=== PATIENT | male | born 1930 | race Caucasian/White ===

== ENCOUNTER 2022-03-03 07:49 | Day surgery (SDC) | payer MEDICARE, BC ==
[2022-03-03] VITALS (12 sets, daily range): BP systolic 112–155; BP diastolic 64–102
[~2022-03-03] VITALS: Ht 182.9 cm; Wt 78.0 kg
[~2022-03-03 07:49] MED LIST: AMIO200T61 PO; APIX2.5T PO; DILT180T9 PO; FURO20TA4 PO; POTA99TA25; TAMS0.4C32 PO
[2022-03-03] MEDS ORDERED: normal saline 1000ml 1,000 ML IV SCH (08:20)
[2022-03-03] MEDS ORDERED: fentaNYL/PF 50MCG/1 ML 2ML syringe IV ONE (08:20)
[2022-03-03] MEDS ORDERED: MIDAZolam 1mg/ml 10ml vial IV ONE (08:20)
[2022-03-03] MEDS ORDERED: glycopyrrolate 0.2mg/ml inj IV PRN (08:20)
[2022-03-03] MEDS ORDERED: amiodarone 150mg/dext, iso-os 100 ML IV ONE (08:20)
[2022-03-03] MEDS ORDERED: NITR0.4T48 (09:00)
[2022-03-03] MEDS ORDERED: BENICAR HCT PO (09:03)
[2022-03-03] MEDS ORDERED: SENNA PO (09:03)
[2022-03-03 09:47] LABS: BASOPHILS % (AUTO) 0.7 % (0-1); EOSINOPHILS # (AUTO) 0.2 X10'3 (0-0.9); EOSINOPHILS % (AUTO) 4.2 % (0-6); HEMATOCRIT 41.3 % (42.0-52.0); HEMOGLOBIN 13.9 g/dl (14.0-17.9); LYMPHOCYTES # (AUTO) 1.4 X10'3 (1.1-4.8); LYMPHOCYTES % (AUTO) 26.4 % (21-51); MEAN CORPUSCULAR HEMOGLOBIN 31.9 PG (27.0-31.0); MEAN CORPUSCULAR HGB CONC 33.7 g/dL (33.0-36.5); MEAN CORPUSCULAR VOLUME 94.5 FL (78-98); MEAN PLATELET VOLUME 8.4 FL (7.4-10.4); MONOCYTES # (AUTO) 0.6 X10'3 (0-0.9); MONOCYTES % (AUTO) 10.7 % (2-12); NEUTROPHILS # (AUTO) 3.1 X10'3 (1.8-7.7); PLATELET COUNT 178 X10'3 (140-440); RED BLOOD COUNT 4.37 X10'6 (4.70-6.10); RED CELL DISTRIBUTION WIDTH 13.4 % (11.5-14.5); WHITE BLOOD COUNT 5.3 X10'3 (4.5-11.0)
[2022-03-03] MEDS ORDERED: nitroGLYCERIN 0.4mg SUBLingual tab SL PRN (10:30)
[2022-03-03 10:31] LABS: ALBUMIN 3.7 G/DL (3.4-5.0); ANION GAP 10 (8-16); BLOOD UREA NITROGEN 31 MG/DL (7-18); BUN/CREATININE RATIO 13.5 (5.4-32.0); CHLORIDE 104 MMOL/L (99-107); CREATININE 2.29 MG/DL (0.60-1.10); GLUCOSE 96 MG/DL (70-104); MAGNESIUM 2.1 MG/DL (1.5-2.4); POTASSIUM 3.8 MMOL/L (3.5-5.1); SODIUM 141 MMOL/L (135-145); TOTAL CARBON DIOXIDE 26.9 MMOL/L (24-32); eGFR 27 ML/MIN
== END 2022-03-03 12:15 | disposition home or self-care (01) ==
LOC: SSTAY O 07:49
PROVIDERS: ATTEND Internal Medicine Cardiovascular Disease
DX: I48.4 Atypical atrial flutter (principal); I34.0 Nonrheumatic mitral (valve) insufficiency; E78.5 Hyperlipidemia, unspecified; I12.9 Hypertensive chronic kidney disease with stage 1 through stage 4 chronic kidney disease, or unspecified chronic kidney disease; N18.9 Chronic kidney disease, unspecified; G47.30 Sleep apnea, unspecified; Z79.01 Long term (current) use of anticoagulants; Z79.899 Other long term (current) drug therapy
CPT/HCPCS: 36415; 80048; 83735; 85025; 85610; 92960; 93005; 93312; 93325; 94799; J0282; J2250; J3010; J3490; J7030; A4620

== ENCOUNTER 2022-06-07 08:21 | Day surgery (SDC) | payer MEDICARE, BC ==
[~2022-06-07] VITALS: Ht 185.4 cm; Wt 73.9 kg
[2022-06-07] VITALS (8 sets, daily range): BP systolic 113–149; BP diastolic 44–83
[~2022-06-07 08:21] MED LIST changes: -AMIO200T61 PO; -APIX2.5T PO; +BENICAR HCT PO; -DILT180T9 PO; -FURO20TA4 PO; +NITR0.4T48; -POTA99TA25; +SENNA PO; +iohexol 350MG/ML 100ml bottle IV ONE
[2022-06-07] MEDS ORDERED: OLME-9 PO (09:16)
[2022-06-07] MEDS ORDERED: ASPI-1071 PO (09:16)
[2022-06-07] MEDS ORDERED: sodium bicarbonate (8.4%) inj. 150 ML in dextrose 5%-water 850 ML IV ONE (09:20)
[2022-06-07] MEDS ORDERED: sodium bicarbonate (8.4%) inj. 150 ML in dextrose 5%-water 1,000 ML IV ONE (09:20)
[2022-06-07 09:49] LABS: ALANINE AMINOTRANSFERASE 17 U/L (12-78); ALBUMIN/GLOBULIN RATIO 0.9 (1.1-1.5); ALKALINE PHOSPHATASE 101 IU/L (46-116); ANION GAP 5 (8-16); ASPARTATE AMINO TRANSFERASE 10 U/L (10-37); BILIRUBIN,TOTAL 0.3 MG/DL (0.1-1.0); BLOOD UREA NITROGEN 25 MG/DL (7-18); BUN/CREATININE RATIO 11.3 (5.4-32.0); CALCIUM 8.5 MG/DL (8.5-10.1); CHLORIDE 105 MMOL/L (99-107); CHOL/HDL RATIO 3.4 (0.00-4.99); CHOLESTEROL 130 MG/DL (0-200); CREATININE 2.21 MG/DL (0.60-1.10); GLUCOSE 103 MG/DL (70-104); HDL CHOLESTEROL 38 MG/DL (35-60); LDL CHOLESTEROL 83 MG/DL (50-100); POTASSIUM 3.6 MMOL/L (3.5-5.1); SODIUM 139 MMOL/L (135-145); TOTAL CARBON DIOXIDE 28.7 MMOL/L (24-32); TOTAL PROTEIN 6.3 G/DL (6.4-8.2); TRIGLYCERIDES 68 MG/DL (20-135); eGFR 28 ML/MIN
--- NOTE | 2022-06-07 11:30 | NUR ---
Pt returns from CT scan. No c/o pain ,VSS. Will continue IV fluids. Pt sitting up in bed, turkey sandwich and water given, pt tolerating well.
--- NOTE | 2022-06-07 13:50 | NUR ---
PIV DC cath intact, VSS, denies pain, resp even and unlabored. Written and Verbal DC instructions given to pt verbalizes understanding. Pt able to dress self, amb to restroom gait steady.
--- NOTE | 2022-06-07 14:00 | NUR ---
DC to home with , transferred to private car via WC, pt able to transfer self to car.
== END 2022-06-07 14:00 | disposition home or self-care (01) ==
LOC: SSTAY O 08:21 → EDSTATUS 09:00 → SSTAY O 14:00
PROVIDERS: ATTEND Internal Medicine Cardiovascular Disease
DX: I65.23 Occlusion and stenosis of bilateral carotid arteries (principal); I48.0 Paroxysmal atrial fibrillation; E78.5 Hyperlipidemia, unspecified; I12.9 Hypertensive chronic kidney disease with stage 1 through stage 4 chronic kidney disease, or unspecified chronic kidney disease; N18.9 Chronic kidney disease, unspecified; Z98.890 Other specified postprocedural states; Z79.899 Other long term (current) drug therapy
CPT/HCPCS: 36415; 70496; 70498; 80053; 80061; J3490; J7070; Q9967